=== PATIENT | female | born 1950 | race Caucasian/White ===

== ENCOUNTER 2019-12-02 06:26 | Observation (INO) | payer OTHER ==
[~2019-12-02] VITALS: Ht 167.6 cm; Wt 86.6 kg
[2019-12-02] VITALS (11 sets, daily range): BP systolic 102–122; BP diastolic 35–71
--- NOTE | ~2019-12-02 | P ---
[facility] [place] [address] PROCEDURE REPORT Name: ZACH PRECIADO Room #: REG BRINA Jose Francisco.#: [id number] Admission: 12/02/19 Attend Phys: Raul Damon MD Discharge: Date of : 48 Report #: [id number] THIS REPORT FOR: cc: Raudel Atkins MD,Raudel Damon,Raul Chris MD ~ CC: Raudel Damon DATE OF SERVICE: 12/02/2019 PREOPERATIVE DIAGNOSES: 1. Paroxysmal atrial fibrillation. 2. Nonischemic cardiomyopathy. 3. Biotronik biventricular ICD. POSTOPERATIVE DIAGNOSES: 1. Paroxysmal atrial fibrillation. 2. Nonischemic cardiomyopathy. 3. Biotronik biventricular ICD. PROCEDURES PERFORMED: 1. Atrial fibrillation ablation, CPT code 57696. 2. 3D mapping, CPT code 51019. 3. Intracardiac echo, CPT code 86366. 4. ICD reprogramming, CPT code 90532. HISTORY: The patient is a 69-year-old female with a nonischemic cardiomyopathy, status post Biotronik biventricular ICD implantation, who has had increased atrial fibrillation despite increasing doses of sotalol therapy. She is having side effects related to high dose sotalol. She is here for AFib ablation. ANESTHESIA: The patient underwent general anesthesia with no anesthesia related complications. DESCRIPTION OF PROCEDURE: The patient underwent informed consent. We discussed the details of the procedure including the risks, which include but not limited to bleeding, vascular damage, cardiac perforation, stroke and OR. She understood these risks and is willing to proceed. The patient was brought to the EP laboratory in a fasting and sedated state, prepped and draped in sterile fashion. Next, I obtained access to the right femoral vein x 3, placing an 8, 9 and 7-[place] short sheath using the modified Seldinger technique. Next, under fluoroscopy, I placed a decapolar catheter easily in the coronary sinus and did not disrupt the LV lead. I placed the ICE catheter into the right atrium and created a detailed 3D geometry of the left [facility] [address] [place] [address] PROCEDURE REPORT Name: ZACH PRECIADO Room #: REG [facility] Jose Francisco.#: [id number] Admission: 12/02/19 Attend Phys: Raul Damon MD Discharge: Date of : 48 Report #: [id number] atrium with evidence of two left and two right pulmonary veins. Next, the patient was systemically heparinized and a transseptal was performed using an SL1 sheath and [place] needle. This was straightforward and I exchanged for the cryo sheath and placed this in the left atrium. Then, using a Lasso catheter I created a detailed 3D voltage map of the left atrium. Next, the cryoablation catheter was placed in the left atrium and ablation was performed. The left superior pulmonary vein underwent a 4-minute, followed by 3-minute freeze with evidence of isolation. The left inferior pulmonary vein underwent a 4-minute, followed by 3-minute freeze with evidence of isolation. The right superior pulmonary vein underwent initially 110 second freeze, but there was some phrenic nerve weakening so I came off. I then moved to the right inferior pulmonary vein and performed a 4-minute freeze with evidence of isolation and then I went back to the right superior pulmonary vein and performed a 120-second freeze and there was evidence of isolation. Next, I performed a repeat voltage map of the left atrium and now there was evidence of wide circumferential ablation of the 4 pulmonary veins. As such, the procedure was concluded. Using intracardiac ultrasound, there was no evidence of pericardial effusion. The device was interrogated and I did find stable lead function and I did turn on rate response. The patient awoke neurologically and hemodynamically intact. No complications and no significant bleeding. CONCLUSIONS: 1. Successful AFib ablation with isolation of the pulmonary veins. 2. Successful ICD reprogramming. By: [id number] Raul Damon MD /nt
[~2019-12-02 06:26] MED LIST: ACETAMINOPHEN325 M1 OR; ALDACTONE25 MG PO; ASPIRIN325 PO; CARVEDILOL12.5 MG PO; CENTRUM SILVER1 EAC1 PO; CENTRUM SILVER1 EAC4 PO; COUMADIN 3 MG TA3 M1 PO; COUMADIN 5 MG TA5 M1 PO; EFFEXOR75 MG PO; IRON325 PO; JANUMET 50-1,01 EACH PO; LASIX 40 MG TAB40 M1 PO; LEVOXYL112 MCG PO; LORTAB 5-500 T1 EAC1 PO; METFORMIN HCL500 MG PO; NIASPAN 500 MG500 M1 PO; POTASSIUM20 PO; SORINE 80 MG TA80 M1 PO; TIROSINT150 MCG PO; TRILIPIX135 MG PO; VITAMIN D 5050000 I1 PO; ZESTRIL10 MG PO
[2019-12-02] MEDS ORDERED: MAGNESIUM OXID400 M2 PO (08:14)
[2019-12-02] MEDS ORDERED: ENTRESTO 49 MG1 EACH PO (08:15)
[2019-12-02] MEDS ORDERED: XARELTO20 MG PO (08:15)
[2019-12-02 08:17] LABS: APTT 28.3 Seconds (24.5-32.8); PROTIME 10.7 Seconds (9.3-11.4)
--- NOTE | 2019-12-02 17:47 | NUR ---
PT CARE ASSUMED APPROX 1215. ASSESSMENTS CHARTED. PT DENIES PAIN AND SOA. VSS. POST PROCEDURE SITE TO RIGHT GROIN C/D/I. PT TOLERATED PALM REMOVAL. PT AWARE TO NOTIFY NURSING WHEN SHE VOIDS. FLUIDS MILDLY ENCOURAGED D/T HER CHF HISTORY. PT'S PRESENT UPON ARRIVAL. BOTH DENY QUESTIONS OR CONCERNS REGARDING PT'S POC. NO DISTRESS NOTED.
[2019-12-03 00:17] VITALS: BP 116/46
--- NOTE | 2019-12-03 03:38 | NUR ---
ASSESSMENTS CHARTED, MEDS CHARTED GIVEN. PATIENT HAD AN AFIB ABLATION DURING THE DAY AND WAS ON 6 HOURS BEDREST. BEDREST HAD PRIOR TO SHIFT START. PATIENT ALERT AND ORIENTED, V-PACED ON TELEMETRY LUNGS CLEAR ON ROOM AIR. PALM WAS REMOVED PRIOR TO SHIFT CHANGE AFTER FIRST VOID PATIENT WAS BLADDER SCANNED AND BLADDER MEASURED EMPTY. RIGHT GROIN ACCESS SITE DRESSING IS DRY AND SOFT, SOME BRUISING SHOWING FROM UNDERNEATH DRESSING. UP AT JF IN ROOM, FALL PRECAUTIONS IN PLACE DURING SHIFT. DENIED PAIN.
[2019-12-03 03:54] VITALS: BP 111/56
[2019-12-03] MEDS ORDERED: SORINE 80 MG TA80 M1 PO (07:27)
[2019-12-03 08:00] VITALS: BP 124/78
[2019-12-03 10:04] VITALS: BP 124/78
== END 2019-12-03 10:46 | disposition home or self-care (01) ==
LOC: CATH 06:26 → 2N 12:26 → CATH 13:01 → 2N 12-03 10:46
PROVIDERS: ADMIT Internal Medicine Cardiovascular Disease; ATTEND Internal Medicine Cardiovascular Disease
DX: Z03.818 Encounter for observation for suspected exposure to other biological agents ruled out (principal); I48.0 Paroxysmal atrial fibrillation; I42.8 Other cardiomyopathies; Z95.810 Presence of automatic (implantable) cardiac defibrillator; I11.0 Hypertensive heart disease with heart failure; I50.23 Acute on chronic systolic (congestive) heart failure; E78.5 Hyperlipidemia, unspecified; Z86.73 Personal history of transient ischemic attack (TIA), and cerebral infarction without residual deficits
CPT/HCPCS: 65020; 65040; 70005

== ENCOUNTER → 2020-07-27 | Outpatient (CLI) | payer OTHER ==
[~2020-07-27] MED LIST changes: +ENTRESTO 49 MG1 EACH PO; +MAGNESIUM OXID400 M2 PO; +XARELTO20 MG PO
== END ==
LOC: SJCVC 14:35
PROVIDERS: ATTEND Internal Medicine Cardiovascular Disease
DX: I48.0 Paroxysmal atrial fibrillation (principal); I50.22 Chronic systolic (congestive) heart failure; I25.5 Ischemic cardiomyopathy; I47.1 Supraventricular tachycardia; I10 Essential (primary) hypertension; E78.2 Mixed hyperlipidemia; E11.9 Type 2 diabetes mellitus without complications; Z79.84 Long term (current) use of oral hypoglycemic drugs; Z95.810 Presence of automatic (implantable) cardiac defibrillator; Z86.73 Personal history of transient ischemic attack (TIA), and cerebral infarction without residual deficits; Z88.5 Allergy status to narcotic agent; Z88.1 Allergy status to other antibiotic agents; Z79.899 Other long term (current) drug therapy; Z87.891 Personal history of nicotine dependence